=== PATIENT | male | born 1965 | race Caucasian/White ===

== ENCOUNTER → 2019-08-31 | Outpatient (CLI) | payer MEDICARE, MEDICAID ==
[~2019-08-31] MED LIST: CHON150C PO; CO Q10CA PO; CYCL5TAB PO; FISH500C PO; FLEX10TA2 PO; GABA300C2 PO; GASTROGRAFIN SOLUTION 30ML (Q9963) As Ordered ONE; ISOVUE-370 76% 100ML VIAL (Q9967) As Ordered ONE; LYRI75CA PO; MELO15TA3 PO; META800T82 PO; METH1TAB40 PO; METH750T PO; MILK140C PO; MULTCAP PO; MULTTAB4 PO; NAPR500T2 PO; ONDA8TAB7 PO; OXYC1CAP PO; PERC5TAB12 PO; PERC7.5T12 PO; PROC10TA4 PO; TYLE500T78 PO; VALI5TAB PO; VITA-198 PO; oxycodone PO
--- NOTE | 2019-08-31 14:48 | REP ---
CT of the chest for restaging colon cancer: There are no comparison studies. The study is performed with IV contrast. There is an 8 mm nodule with poorly defined margins in the right middle lobe inferiorly anterior to the dome of the liver. There is a 6 mm lung nodule in the deep posterior sulcus of the left lower lobe. There is a 6 mm lung nodule inferiorly in the lingula. There is an 8 mm lung nodule anteriorly in the right upper lobe. There is a 5 mm lung nodule anteriorly in the right upper lobe. There are no infiltrates. There are no pleural effusions. There is an enlarged mediastinal subcarinal node measuring 16 mm short axis. There are normal size paratracheal mediastinal nodes. There is no hilar lymph node enlargement. There is no axillary lymph node enlargement. There are no infiltrates. There are no pleural effusions. No lytic, blastic or destructive skeletal changes identified. Multiple lung nodules as described. Mediastinal lymph nodes as described. No hilar lymph node enlargement or axillary lymph node enlargement. Numerous hepatic metastases are identified in the visualized upper abdomen. Electronically Signed by Radhames Wallace MD 08/31/2019 02:39 P
--- NOTE | 2019-08-31 14:56 | REP ---
CT of the abdomen and pelvis with IV and oral contrast for restaging of colon carcinoma. There are no comparison studies. There is circumferential wall thickening of the rectosigmoid colon compatible with the clinical history of colon carcinoma. There are numerous hepatic nodules compatible with hepatic metastases. There are enlarged nodes at the wilver hepatis. There are borderline enlarged mesenteric nodes. There are enlarged nodes along the left pelvic sidewall. The gallbladder, pancreas and spleen are unremarkable. The adrenals are unremarkable. The kidneys are unremarkable. Abdominal aorta is unremarkable. There is a borderline enlarged periaortic node. There is no bowel distension or obstruction. Pelvis: Rectosigmoid colon wall thickening as described. The bladder is unremarkable. There is no ascites. There are no lytic, blastic or destructive skeletal changes. Impression: Circumferential wall thickening of the rectosigmoid colon compatible with the clinical history of colon carcinoma. Multiple hepatic metastases. Mesenteric lymphadenopathy as described. Pelvic lymphadenopathy as described. No ascites. Electronically Signed by Radhames Wallace MD 08/31/2019 02:48 P
== END ==
LOC: M RAD 11:55
PROVIDERS: ATTEND Internal Medicine Medical Oncology
DX: C18.9 Malignant neoplasm of colon, unspecified (principal)
CPT/HCPCS: 71260; 74177; Q9963; Q9967

== ENCOUNTER → 2019-09-01 | Outpatient (CLI) | payer MEDICARE, MEDICAID ==
[~2019-09-01] MED LIST changes: -GASTROGRAFIN SOLUTION 30ML (Q9963) As Ordered ONE; -ISOVUE-370 76% 100ML VIAL (Q9967) As Ordered ONE; +LIDOCAINE 1% MDV 20ML VIAL As Ordered ONE; +MIDAZOLAM INJ 2 MG/2 ML VIAL (J2250) As Ordered ONE; +OXYC-517 PO; +OXYC5CAP56 PO; +ceFAZolin 1GM INJ (J0690 PER 500MG) As Ordered ONE; +diphenhydrAMINE INJ 50MG/ML VIAL (J1200) As Ordered ONE; +fentaNYL 100 MCG/2 ML INJECTION (J3010) As Ordered ONE
--- NOTE | 2019-09-01 13:39 | IRHP ---
[facility] [place] Pre-Procedure H & P General Date of Service: Sep 01, 2019 Procedure: Same Day Surgery Interval History and Physical I have seen the patient and reviewed last H & P performed within 30 days. There is no significant interval change. History of Present Illness Chief Complaint The patient is a 54-year-old male admitted with a reason for visit of Mets- Chemo. PRE-PROCEDURE DIAGNOSIS: rectal ca HEART: normal rate. LUNGS: normal breathing at rest. ASA Classification ASA Classification: II-Mild systemic disease Mallampati Score: I NPO: Yes Problems with prior sedation: No Obstructive Sleep Apnea: No Plan moderate sedation Home Medications Scheduled Ascorbic Acid (Vitamin C), 1,000 MG PO DAILY, (Reported) Multivitamin (Multivitamins), 1 CAP PO DAILY, (Reported) [place]-3/Dha/Epa/Fish Oil (Fish Oil 500 mg Softgel), 1 TAB PO DAILY, (Reported) Ubidecarenone (Co Q-10), 2 TABS PO DAILY, (Reported) Scheduled PRN Oxycodone HCl (Oxycodone Hydrochloride), 5 MG PO QIDP PRN for pain, (Reported) Miscellaneous Medications Milk Thistle Seed Extract (Milk Thistle), 140 MG PO, (Reported) Discontinued Medications Acetaminophen (Tylenol Extra Strength), 500 MG PO BIDP PRN for PAIN, (Reported) Discontinued Reason: Pt states not taking Chondroitin Sulfate A (Chondroitin Sulfate), 1 TAB PO DAILY, (Reported) Discontinued Reason: Pt states not taking Metaxalone (Metaxalone), 800 MG PO TID, (Reported) Discontinued Reason: Pt states not taking Oxycodone HCl/Acetaminophen (Percocet 5-325 mg Tablet), 1 TAB PO q4-6hr as needed PRN for PAIN, (Reported) Discontinued Reason: Pt states not taking VS, I&O, 24H, Fishbone Vital Signs/I&O Vital Signs Date Time Temp Pulse Resp B/P (MAP) Pulse Ox O2 Delivery O2 Flow Rate FiO2 09/01/19 13:27 98.0 110 18 98 Room Air CAMILLE MCKEON MD Sep 01, 2019 13:39
--- NOTE | 2019-09-01 14:42 | POST-OPPD ---
Postoperative Procedure Note Date Of Procedure: Sep 01, 2019 Time Of Procedure: 14:41 PREOPERATIVE DIAGNOSIS: rectal ca POSTOPERATIVE DIAGNOSIS: rectal ca FINDINGS: patent right IJ PROCEDURE: right side port. see full report under imaging tab SURGEON: isma ANESTHESIA: mod sed ESTIMATED BLOOD LOSS: < 5 ml COMPLICATIONS: none POSTOPERATIVE CONDITION: stable CAMILLE MCKEON MD Sep 01, 2019 14:42
--- NOTE | 2019-09-01 15:43 | REP ---
IR Ultrasound and fluoroscopy-guided port placement. IR Ultrasound of the neck. IR Moderate sedation. Clinical information: Colorectal cancer . Physician: Dr. Oquendo. Procedure: The patient was advised of the benefits, risks, and alternatives of the procedure and informed consent was obtained. A time-out was performed with verification of the patient's name, MRN, site of procedure and type of procedure to be performed. The patient was positioned in the supine position on the angiographic table. The site was prepped and draped in the usual sterile fashion. Moderate sedation was performed by the physician including the presence of an independent trained observer who assisted and monitored the patient's level of consciousness and physiologic status. Following the administration of fentanyl and Versed , the physician spent 45 minutes of continuous face to face time with the patient. Ultrasound of the neck reveals a patent and compressible right internal jugular vein. A bulb planter radiograph reveals no gross abnormality. The neck and anterior chest wall were anesthetized with lidocaine. The right internal jugular vein was accessed using a microintroducer needle under ultrasound guidance, via a lateral approach. An 018 wire was advanced into the superior vena cava, the needle was removed and a microsheath was placed. An Amplatz wire was then passed into the inferior vena cava. An incision at the internal jugular vein access site and anterior chest wall were made using a scalpel. An incision was made at the anterior chest wall. A small pocket was created using a combination of blunt and sharp dissection. A tunneling device was then used to pass the catheter from the pocket to the neck puncture site. An 8-[employer] [place] [employer] Smart power port was then positioned in the pocket. The catheter was then measured and cut. The introducer sheath was exchanged for a peel-away sheath. The catheter was passed through the peel-away sheath into the internal jugular vein and the peel-away sheath was removed. The port tip was positioned at the cavoatrial junction. The port was then accessed with a Doty needle. The port flushes and aspirates well. The puncture site in the neck was closed. The chest wall incision was then closed with 2-0 Vicryl and 4-0 Monocryl. Glue and Steri-Strips were applied. A sterile dressing was then applied. The patient tolerated the procedure well and was returned to the PRU in stable condition. Estimated blood loss: <5 ml. Complications: None. Conclusion: 1. Successful placement of an 8-[employer] [place] [employer] Smart power port via the right internal jugular vein. The port is ready for immediate use. 2. Patient to follow up in IR clinic in 2 weeks. Thank you for this referral. Electronically Signed by Elba Oquendo MD 09/01/2019 03:41 P
[2019-09-01 16:42] VITALS: BP 134/88
== END ==
LOC: M IRPRO 12:46
PROVIDERS: ATTEND Internal Medicine Medical Oncology
DX: C18.9 Malignant neoplasm of colon, unspecified (principal)
CPT/HCPCS: 36573; 99152; 99153; C1769; C1788; C1894; J0690; J1200; J2250; J3010

== ENCOUNTER → 2019-12-10 | Outpatient (CLI) | payer MEDICARE, MEDICAID ==
[~2019-12-10] MED LIST changes: +GASTROGRAFIN SOLUTION 30ML (Q9963) As Ordered ONE; +ISOVUE-370 76% 100ML VIAL (Q9967) As Ordered ONE; -LIDOCAINE 1% MDV 20ML VIAL As Ordered ONE; -MIDAZOLAM INJ 2 MG/2 ML VIAL (J2250) As Ordered ONE; +ONDA8TAB10 PO; -ONDA8TAB7 PO; +POTA595T8 PO; -ceFAZolin 1GM INJ (J0690 PER 500MG) As Ordered ONE; -diphenhydrAMINE INJ 50MG/ML VIAL (J1200) As Ordered ONE; -fentaNYL 100 MCG/2 ML INJECTION (J3010) As Ordered ONE
--- NOTE | 2019-12-10 18:50 | REP ---
Clinical: Stage IV rectal cell carcinoma. Restaging. Technique: Axial contrast enhanced images from the thoracic inlet to the upper abdomen with coronal and sagittal re-formations using 100 ml Isovue 370 intravenous contrast material. Comparison: 08/31/2019. Findings: Scattered bilateral pulmonary nodules are either stable or have regressed / resolved in comparison with relatively recent prior examination. As example, stable nodules are identified in the right upper lobe which again measuring 8 mm and 5 mm (image 44). Smaller 2-3 mm nodules are also identified and stable. No new acute nodule, mass or consolidation identified. No pleural effusion. No pneumothorax. No significant adenopathy is appreciated. Mediastinum demonstrates normal thoracic aorta, pulmonary vasculature and heart/pericardium. No pericardial effusion. Osseous structures are intact without acute focal abnormality. Impression: Few scattered nodules measuring up to 8 mm remains stable. No new nodule, mass or consolidation. No effusion. Electronically Signed by Onesimo Car MD 12/10/2019 06:42 P
--- NOTE | 2019-12-10 19:03 | REP ---
Clinical: Stage IV rectal carcinoma. Restaging. Technique: Axial contrast enhanced images from the lung bases to the pubic symphysis using oral (per protocol) and 100 ml Isovue 370 intravenous contrast material with coronal and sagittal re-formations. Delayed images of the abdomen obtained. Comparison: 08/31/2019. Findings: Innumerable metastatic liver lesions are essentially unchanged. Spleen, pancreas, gallbladder, bilateral adrenal glands and kidneys are normal / stable. Simple bilateral renal cysts measuring up to 1.2 cm again noted and unchanged. Irregular mucosal thickening of the rectum with proximal extension to the level of the mid sigmoid (images 110 - 170) is again noted with surrounding fatty infiltration. Pelvic adenopathy is considerably decreased. There is no evidence for bowel obstruction and the remainder of the enteric system is grossly unremarkable. Further evaluation of the pelvis demonstrates normal bladder. The prostate gland is nonspecific in appearance and measures 4.3 cm maximal transverse diameter. No ascites. No free air. Abdominal aorta and vasculature without aneurysm or dissection. Musculoskeletal structures demonstrate age-related changes without focal osseous abnormality. Impression: 1. Primary neoplasm involving the rectum with proximal irregular mucosal thickening to the level of the mid sigmoid colon with surrounding inflammatory changes again noted and similar to prior examination. The known pelvic adenopathy has considerably increased. 2. Innumerable hepatic metastases are essentially stable and without obvious progression. Electronically Signed by Onesimo Car MD 12/10/2019 06:55 P
== END ==
LOC: M RAD 15:32
PROVIDERS: ATTEND Internal Medicine Medical Oncology
DX: C20 Malignant neoplasm of rectum (principal)
CPT/HCPCS: 71260; 74177; Q9963; Q9967

== ENCOUNTER 2019-12-31 07:15 | Outpatient (CLI) | payer MEDICARE, MEDICAID ==
[~2019-12-31] VITALS: Ht 175.3 cm; Wt 72.6 kg
[2019-12-31] VITALS (8 sets, daily range): BP systolic 103–126; BP diastolic 71–89
[~2019-12-31 07:15] MED LIST changes: -GASTROGRAFIN SOLUTION 30ML (Q9963) As Ordered ONE; -ISOVUE-370 76% 100ML VIAL (Q9967) As Ordered ONE
[2019-12-31] MEDS ORDERED: diphenhydrAMINE 50 MG CAP PO ONE (07:45)
[2019-12-31] MEDS ORDERED: ACETAMINOPHEN TAB 650MG DOSE (2X325MG) PO ONE (07:45)
== END 2019-12-31 11:45 | disposition home or self-care (01) ==
LOC: M INFU 07:15
PROVIDERS: ATTEND Internal Medicine Medical Oncology
DX: D64.9 Anemia, unspecified (principal); Z91.041 Radiographic dye allergy status; Z88.8 Allergy status to other drugs, medicaments and biological substances
CPT/HCPCS: 36430; P9016

== ENCOUNTER 2020-01-12 13:55 | Emergency (ER) | payer MEDICARE, MEDICAID ==
[~2020-01-12] VITALS: Ht 177.8 cm; Wt 71.4 kg
[2020-01-12] MEDS ORDERED: NS 1,000 ML IV ONE (14:00)
[2020-01-12 14:01] VITALS: BP 111/77
--- NOTE | 2020-01-12 14:24 | REP ---
Chest x-ray: Two views. History: Syncope. Findings: There is a right-sided Xzopat-W-Ltxw catheter in place with its tip in the expected location of the superior vena cava. Monitoring electrodes are seen overlying the chest. The lungs are well inflated and clear. Pleural angles are sharp. Heart is not enlarged. Pulmonary vasculature is not increased. The thoracic aorta is very slightly tortuous. No bony abnormalities seen. Impression: No active disease. Electronically Signed by Travis Dejesus MD 01/12/2020 02:16 P
[2020-01-12] MEDS ORDERED: SODIUM CHLORIDE 0.9% INJ 10 ML SYR IV PRN (14:30)
--- NOTE | 2020-01-12 17:39 | ECGEPIP ---
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
== END 2020-01-12 15:03 | disposition left against medical advice (07) ==
LOC: M ED 13:55
DX: R55 Syncope and collapse (principal); T45.1X5A Adverse effect of antineoplastic and immunosuppressive drugs, initial encounter; Z53.21 Procedure and treatment not carried out due to patient leaving prior to being seen by health care provider; R00.0 Tachycardia, unspecified; R94.31 Abnormal electrocardiogram [ECG] [EKG]; C18.9 Malignant neoplasm of colon, unspecified; D64.9 Anemia, unspecified; M54.9 Dorsalgia, unspecified; Z79.899 Other long term (current) drug therapy; Z88.8 Allergy status to other drugs, medicaments and biological substances